=== PATIENT | female | born 1990 | race Caucasian/White ===

== ENCOUNTER 2023-05-20 06:45 | Emergency (ER) | payer BC, SELFPAY ==
[2023-05-20 06:54] VITALS: BP 124/73
[2023-05-20 07:22] VITALS: BMI 26.1
[2023-05-20 07:42] LABS: % Eosinophils 1.8 % (0-6); % Immature Granulocytes 1.1 % (0-0.5); % Lymphocytes 19.9 % (20.5-51.1); % Monocytes 11.6 % (1.7-9.3); % Neutrophils 64.6 % (42.2-75.2); Absolute Basophils 0.1 10^3/uL (0-0.2); Absolute Eosinophils 0.1 10^3/uL (0-0.7); Absolute Immature Granulocytes 0.1 10^3/uL (0-0.05); Absolute Lymphocytes 1.5 10^3/uL (1.2-3.4); Absolute Monocytes 0.9 10^3/uL (0.1-0.6); Absolute Neutrophils 4.8 10^3/uL (1.4-6.5); Hematocrit 37.4 % (37.0-47.0); Hemoglobin 12.8 g/dL (12.0-16.0); Mean Corp Hgb Conc. 34.2 g/dL (33.0-37.0); Mean Corpuscular Hgb 28.8 pg (27.0-31.0); Mean Corpuscular Volume 84.2 fL (81.0-99.0); Mean Platelet Volume 9.9 fL (7.4-10.4); Nucleated Red Blood Cells % 0 %; Platelet Count 250 10^3/uL (130-400); Red Blood Cell Count 4.44 10^6/uL (4.20-5.40); Red Cell Dist. Width 12.9 % (11.5-14.5); White Blood Cell Count 7.4 10^3/uL (4.8-10.8)
[2023-05-20 08:07] LABS: Beta HCG Quantitative 718.99 mIU/ml
[2023-05-20 08:15] VITALS: BP 139/89
--- NOTE | 2023-05-20 08:18 | ED.GENMED ---
History of Present Illness
General
Chief Complaint: Problems
Source: patient
Exam Limitations: none
Time Seen by Provider: 05/20/23 07:39
Travel History
Have you had any contact with someone who has COVID-19?: No
Do you have any symptoms of coronavirus? Fever > 100 degrees, chills, cough, shortness of breath, sore throat, loss of taste or smell, muscle aches, or headache?: No
History of Present Illness
History of Present Illness:
33-year-old female with history of hypothyroidism at 6-1/2 weeks gestation with onset of vaginal bleeding this morning. There is no cramping or pain. She noticed blood dripping into the toilet when she went to the bathroom and blood on the toilet
paper. No large clots. No flank pain. [facility] [place] This will be her first . No other complaints at this time.
Phy Exam
Physical Exam
Physical Exam:
General: Well appearing, anxious female NAD
HEENT: NC/AT
Heart: RRR, no mumurs
Lung: CTA bilaterally
Abd; soft, nontender, nondistended
Ext: No cyanosis
Course
Orders/Labs/Results
Orders:
Orders
05/20/23 07:00
US W Transvaginal Urgent
Reason For Exam: pt 6-7 weeks and spotting
05/20/23 07:19
Type+Screen Urgent
Beta HCG Quantitative Urgent
Is this a screen?: No
Comment: pt is 6-7 weeks , spotting
Complete Blood Count/With Diff Urgent
05/20/23 08:11
Urinalysis Reflex To Culture Urgent
Date Specimen was Collected: 05/20/23
Time Specimen was Collected: 08:08
Urine Microscopic Reflex Cult Urgent
Abnormal Lab Results
05/20/23 05/20/23
07:19 08:11
Abs Immat Gran (auto) 0.1 H 10^3/uL
(0-0.05)
Absolute Monos (auto) 0.9 H 10^3/uL
(0.1-0.6)
Immature Gran % 1.1 H %
(0-0.5)
Lymphocytes % 19.9 L %
(20.5-51.1)
Monocytes % 11.6 H %
(1.7-9.3)
Ur Occult Blood Reflex 4+ A
(Negative)
Urine Bacteria (Reflex) Few A
(Negative)
05/20/23 07:19
Vital Signs
Initial and Last Documented VS:
Initial Vital Signs
Temp Pulse Resp BP Pulse Ox
97.7 F 80 16 124/73 98
05/20/23 06:54 05/20/23 06:54 05/20/23 06:54 05/20/23 06:54 05/20/23 06:54
Last Documented Vital Signs
Temp Pulse Resp BP Pulse Ox
97.7 F 73 16 116/68 98
05/20/23 06:54 05/20/23 09:00 05/20/23 09:00 05/20/23 10:00 05/20/23 10:30
Information
Weeks gestation: N/A
Location: N/A
MDM/Problems Addressed
Differential Diagnosis Includes:
Bleeding in early . Differential could include spotting versus implantation bleeding versus threatened . Will check beta-hCG and ultrasound.
*Critical Care Note
Total Time (30-74mins, 75-104mins- exclusive of procedures): Not Applicable
Update Note
Update Note:
Ultrasound demonstrates low-lying gestational sac without obvious heartbeat or fetus. hCG today 718 which is down from last week. Suspect threatened or failed . Patient's blood type is O+. No indication for RhoGAM. Stable for
discharge with follow-up. OB did provide a prescription for repeat hCG
ED Attending Note
-
Portions of this chart may have been created with voice recognition software.� Occasional wrong word or��sound alike� substitutions may have occurred due to the inherent limitations of voice recognition software.
Discharge Plan
Departure
Patient Disposition: Home (Routine Discharge)
Date of Disposition: 05/20/23
Time of Disposition: 12:12
Patient with high blood pressure during this ER visit?: No
Discharge Problem:
, threatened
Instructions: Threatened Miscarriage (DC)
Prescriptions:
No Action
liothyronine [Cytomel] 25 mcg Tablet
25 mcg PO DAILY
levothyroxine 200 mcg Tablet
200 mcg PO DAILY
Referrals:
NONE,* [Family Provider] -
Activity Restrictions/Additional Instructions:
Please follow-up with OB as planned. Have your blood rechecked. Return for worsening bleeding or pain.
Interventions
Interventions:
*Risk Screen - Suicide Last Done: 05/20/23 06:54
*General Assessment Last Done: 05/20/23 07:22
*Neglect/Abuse Screening Last Done: 05/20/23 06:54
*ED COVID-19 Vaccine History Last Done: 05/20/23 06:54
ED-Female Genitourinary Assessment Last Done: 05/20/23 07:09
[2023-05-20 08:28] LABS: Urine Albumin Negative (Neg - Trace); Urine Bilirubin Negative (Negative); Urine Character Clear (Clear); Urine Color Yellow; Urine Glucose Negative (Negative); Urine Ketone Negative (Negative); Urine Leukocyte Negative (Negative); Urine Nitrite Negative (Negative); Urine Occult Blood 4+ (Negative); Urine Specific Gravity 1.005 (<1.030); Urine Urobilinogen Negative (Neg - 1+)
[2023-05-20 08:36] LABS: Urine Calcium Oxalate Crystals Present
[2023-05-20 08:37] LABS: Urine Red Blood Cell 0-2 /HPF (0-2); Urine White Cell 0-2 /HPF (0-5)
[2023-05-20 08:38] LABS: Urine Bacteria Few (Negative)
[2023-05-20 09:00] VITALS: BP 121/67
[2023-05-20 10:00] VITALS: BP 116/68
[2023-05-20 11:00] VITALS: BP 137/82
--- NOTE | 2023-05-21 07:18 | CON.MD ---
Consultation - Medical
-
Late entry: pt seen in ED yesterday.
33 yo female with EDC 01/08/24 presented to ED at 6w5d after episode vaginal bleeding. No abdominal pain.
PMH: hypthyroidism, anemia hxm hx thyroglossal duct cyst
PSH: right shoulder surgery, excision thyroglossal duct cyst
NKDA
Meds: cytomel and levothyroxine
Sochx: neg tob, social etoh, neg drug use
Famhx: mother thyroid cancer
ROS: does not add
OB hx elective termination with misoprostol approx 4-5 wks.
PE: VSS afeb
abd: soft nontender nondistended
pelvic exam deferred
Labs: 3/ HCG at [facility] [id number]
05/19 HCG 718
O pos
A/P: Nonviable est 6w5d by LMP given falling hcgs
unknown location-suspect given amount of bleeding, pt has miscarriage in progress, possible incomplete ab.
Reviewed all of this with patient. Recommend serial hcgs to monitor until negative. She will follow up with office for results.
Discussed most common reasons for miscarriage, including aneuploidy. She inquired about progesterone supplementation next .
Recommend after neg hcg if becomes , to call office and can check serial hcg and progesterone level if she desires.
Time for consult including face to face time, review office records, coordinating care 30 min.
== END 2023-05-20 12:36 | disposition home or self-care (01) ==
LOC: EMR 06:45
PROVIDERS: Emergency Medicine; Physician Assistant; EMERGENCY PHYSICIAN Emergency Medicine
DX: O20.0 Threatened abortion (principal); Z3A.01 Less than 8 weeks gestation of pregnancy; O99.281 Endocrine, nutritional and metabolic diseases complicating pregnancy, first trimester
CPT/HCPCS: 99284; 76801; 76817; 81003; 81015; 84702; 85025; 86850; 86900; 86901

== ENCOUNTER → 2023-09-23 08:46 | Outpatient (REF) | payer BC, SELFPAY | LOC: PNTC 08:46 | PROVIDERS: ATTENDING PHYSICIAN Obstetrics & Gynecology | DX: Z36.0 Encounter for antenatal screening for chromosomal anomalies (principal); Z36.82 Encounter for antenatal screening for nuchal translucency | CPT/HCPCS: 76801; 76813 ==

== ENCOUNTER 2024-03-07 15:46 | Observation (INO) | payer BC, SELFPAY ==
[2024-03-07 16:30] VITALS: BP 127/78; BMI 31.3
[2024-03-07 16:40] LABS: % Basophils 0.4 % (0-2); % Eosinophils 0.3 % (0-6); % Immature Granulocytes 0.5 % (0-0.5); % Lymphocytes 14.7 % (20.5-51.1); % Monocytes 10.8 % (1.7-9.3); % Neutrophils 73.3 % (42.2-75.2); Absolute Immature Granulocytes 0.1 10^3/uL (0-0.05); Absolute Lymphocytes 1.4 10^3/uL (1.2-3.4); Absolute Monocytes 1.1 10^3/uL (0.1-0.6); Absolute Neutrophils 7.2 10^3/uL (1.4-6.5); Hematocrit 40.8 % (37.0-47.0); Hemoglobin 13.9 g/dL (12.0-16.0); Mean Corp Hgb Conc. 34.1 g/dL (33.0-37.0); Mean Corpuscular Hgb 29.4 pg (27.0-31.0); Mean Corpuscular Volume 86.3 fL (81.0-99.0); Mean Platelet Volume 11.9 fL (7.4-10.4); Nucleated Red Blood Cells % 0 %; Platelet Count 190 10^3/uL (130-400); Red Blood Cell Count 4.73 10^6/uL (4.20-5.40); Red Cell Dist. Width 13.2 % (11.5-14.5); White Blood Cell Count 9.8 10^3/uL (4.8-10.8)
[2024-03-07 16:58] LABS: ALT (SGPT) 19 U/L (0-35); AST (SGOT) 31 U/L (14-36); Albumin 4.1 g/dl (3.5-5.0); Alkaline Phosphatase 208 U/L (38-126); Blood Urea Nitrogen 11 mg/dl (7-17); Calcium 9.7 mg/dl (8.4-10.2); Carbon Dioxide 17 mmol/L (22-30); Chloride 104 mmol/L (98-107); Estimated Creatinine Clearance 121 ml/min; Glucose 76 mg/dl (70-99); Potassium 4.3 mmol/L (3.5-5.1); Sodium 132 mmol/L (135-145); Total Bilirubin 0.3 mg/dl (0.2-1.3); Total Protein 6.6 g/dl (6.3-8.2); eGFR > 60.00
[2024-03-07 17:41] LABS: Protein/creatinine Ratio 0.6; Urine Protein 11 mg/dl
== END 2024-03-07 18:17 | disposition home or self-care (01) ==
LOC: LDRP 15:46
PROVIDERS: ADMITTING PHYSICIAN Obstetrics & Gynecology
DX: Z03.79 Encounter for other suspected maternal and fetal conditions ruled out (principal)
CPT/HCPCS: 36415; 80053; 82570; 84156; 85025; 86850; 86900; 86901; G0378

== ENCOUNTER → 2024-03-14 11:21 | Outpatient (REF) | payer BC, SELFPAY | LOC: PNTC 11:21 | PROVIDERS: ATTENDING PHYSICIAN Obstetrics & Gynecology | DX: O36.8330 Maternal care for abnormalities of the fetal heart rate or rhythm, third trimester, not applicable or unspecified (principal) | CPT/HCPCS: 59025 ==

== ENCOUNTER 2024-03-24 04:38 | Inpatient (IN) | payer BC, SELFPAY ==
[2024-03-24 04:58] VITALS: BP 132/78; BMI 30.8
[2024-03-24] MEDS: PENICILLIN 110 UNITS IV (05:43)
[2024-03-24] MEDS: LR 1000 IV ×3 (05:43→10:53)
[2024-03-24 05:57] LABS: % Basophils 0.3 % (0-2); % Eosinophils 0.1 % (0-6); % Immature Granulocytes 0.4 % (0-0.5); % Lymphocytes 10.7 % (20.5-51.1); % Monocytes 6.1 % (1.7-9.3); % Neutrophils 82.4 % (42.2-75.2); Absolute Basophils 0.1 10^3/uL (0-0.2); Absolute Immature Granulocytes 0.1 10^3/uL (0-0.05); Absolute Lymphocytes 1.5 10^3/uL (1.2-3.4); Absolute Monocytes 0.9 10^3/uL (0.1-0.6); Absolute Neutrophils 11.8 10^3/uL (1.4-6.5); Hematocrit 41.8 % (37.0-47.0); Mean Corp Hgb Conc. 35.9 g/dL (33.0-37.0); Mean Corpuscular Hgb 30.3 pg (27.0-31.0); Mean Corpuscular Volume 84.4 fL (81.0-99.0); Mean Platelet Volume 12.7 fL (7.4-10.4); Nucleated Red Blood Cells % 0 %; Platelet Count 180 10^3/uL (130-400); Red Blood Cell Count 4.95 10^6/uL (4.20-5.40); Red Cell Dist. Width 13.1 % (11.5-14.5); White Blood Cell Count 14.3 10^3/uL (4.8-10.8)
[2024-03-24] MEDS: FENTANYL/BUPIVACAINE 100 EPIDURAL (07:35)
[2024-03-24] MEDS: SUBLIMAZE 100 MCG EPIDURAL (07:35)
[2024-03-24] MEDS: PRENATAL PLUS PO (07:59)
[2024-03-24] MEDS: CYTOMEL 25 MICROGRAM PO (08:07)
[2024-03-24] MEDS: SYNTHROID 200 MCG PO (08:07)
[2024-03-24] MEDS: PENICILLIN 55 UNITS IV (10:03)
[2024-03-24] MEDS: PITOCIN 30 UNITS/NSS 500 ML IV (11:55)
[2024-03-24] MEDS: CYTOMEL PO (20:00)
[2024-03-25 04:46] LABS: Hematocrit 36.6 % (37.0-47.0); Hemoglobin 12.5 g/dL (12.0-16.0)
[2024-03-25] MEDS: SYNTHROID 200 MCG PO (06:27)
[2024-03-25] MEDS: PRENATAL PLUS 1 TABLET PO (08:32)
[2024-03-25] MEDS: CYTOMEL 25 MICROGRAM PO (08:32)
[2024-03-25] MEDS: SENOKOT-S 1 TABLET PO (11:56)
[2024-03-26] MEDS: TYLENOL 650 MG PO (04:07)
[2024-03-26] MEDS: CYTOMEL PO (05:42)
[2024-03-26] MEDS: SYNTHROID 200 MCG PO (06:57)
[2024-03-26] MEDS: CYTOMEL 25 MICROGRAM PO (08:15)
[2024-03-26] MEDS: SENOKOT-S 1 TABLET PO (08:16)
[2024-03-26] MEDS: PRENATAL PLUS 1 TABLET PO (08:16)
[2024-03-28 16:17] LABS: Syphilis/T. pallidum Ab Reflex Negative (Negative)
== END 2024-03-26 15:30 | disposition home or self-care (01) | DRG 807 ==
LOC: LDRP 04:38
PROVIDERS: Obstetrics & Gynecology; ADMITTING PHYSICIAN Obstetrics & Gynecology
PROC: 0UQMXZZ Repair Vulva, External Approach (ICD-10-PCS; 2024-03-24)
PROC: 10E0XZZ Delivery of Products of Conception, External Approach (ICD-10-PCS; 2024-03-24)
PROC: 10907ZC Drainage of Amniotic Fluid, Therapeutic from Products of Conception, Via Natural or Artificial Opening (ICD-10-PCS; 2024-03-24)
DX: O99.824 Streptococcus B carrier state complicating childbirth (principal); Z37.0 Single live birth; Z3A.40 40 weeks gestation of pregnancy; O70.0 First degree perineal laceration during delivery
CPT/HCPCS: 85014; 85018; 85025; 86780; 86850; 86900; 86901; 87491; 87591